=== PATIENT | female | born 1975 | race Two or more races ===

== ENCOUNTER 2024-09-23 07:13 | Outpatient (CLI) | payer OTHER | END 2024-09-23 07:18 | disposition home or self-care (01) | LOC: NUCLEAR 07:13 | DX: K31.89 Other diseases of stomach and duodenum (principal); K21.9 Gastro-esophageal reflux disease without esophagitis; K59.09 Other constipation; R10.13 Epigastric pain; R14.0 Abdominal distension (gaseous) ==